=== PATIENT | female | born 1975 | race Caucasian/White ===

== ENCOUNTER 2020-08-29 08:44 | Outpatient (CLI) | payer OTHER | END 2020-08-29 08:47 | disposition home or self-care (01) | LOC: LAB 08:44 | PROVIDERS: ATTEND Orthopaedic Surgery | DX: E56.1 Deficiency of vitamin K (principal) ==

== ENCOUNTER 2020-10-27 11:24 | Outpatient (CLI) | payer OTHER | END 2020-10-27 11:27 | disposition home or self-care (01) | LOC: RAD 11:24 | PROVIDERS: ATTEND Orthopaedic Surgery | DX: S82.872D Displaced pilon fracture of left tibia, subsequent encounter for closed fracture with routine healing (principal) ==